=== PATIENT | male | born 1965 | race Caucasian/White ===

== ENCOUNTER 2018-03-31 12:59 | Emergency (ER) | payer MEDICAID ==
[~2018-03-31] VITALS: Ht 172.7 cm; Wt 148.0 kg
[2018-03-31 13:16] VITALS: BP 139/83
[2018-03-31] MEDS ORDERED: ketorolac tromethamine 15mg/ml inj. IM ONE (14:50)
[2018-03-31] MEDS ORDERED: triamcinolone acetonide 40mg/ml inj IM ONE (14:50)
[2018-03-31] MEDS ORDERED: HYDR-3965 PO (15:18)
== END 2018-03-31 15:25 | disposition home or self-care (01) ==
LOC: ER 13:00
DX: M10.9 Gout, unspecified (principal); M06.9 Rheumatoid arthritis, unspecified; I10 Essential (primary) hypertension; Z79.899 Other long term (current) drug therapy
CPT/HCPCS: 96372; 99284; J1885; J3301

== ENCOUNTER 2018-05-14 11:48 | Emergency (ER) | payer MEDICAID ==
[~2018-05-14] VITALS: Ht 172.7 cm; Wt 150.0 kg
[2018-05-14] MEDS ORDERED: HYDR-565 PO (12:44)
[2018-05-14] MEDS ORDERED: PRED20TA PO (12:44)
[2018-05-14 13:08] VITALS: BP 163/100
== END 2018-05-14 13:10 | disposition home or self-care (01) ==
LOC: ER 11:48
DX: S90.812A Abrasion, left foot, initial encounter (principal); M10.9 Gout, unspecified; I10 Essential (primary) hypertension; M19.90 Unspecified osteoarthritis, unspecified site; Z79.899 Other long term (current) drug therapy; X58.XXXA Exposure to other specified factors, initial encounter; Y92.89 Other specified places as the place of occurrence of the external cause; Y93.89 Activity, other specified; Y99.8 Other external cause status
CPT/HCPCS: 99283

== ENCOUNTER → 2018-10-28 | Emergency (ER) | payer MEDICAID ==
[~2018-10-28] VITALS: Ht 172.7 cm; Wt 147.7 kg
[~2018-10-28] MED LIST: HYDR-3965 PO; METH4TAB3 PO; METH4TAB81 PO; methylPREDNISolone acetate 80mg/ml inj**IM only IM ONE; methylPREDNISolone sod succ 125mg/2ml vial IM ONE
[2018-10-28 16:14] VITALS: BP 169/68
--- NOTE | 2018-10-28 17:04 | NUR ---
PT DESCRIBES PAIN LOWER EXT KNEES, ANKLES AND TOPS OF FEET. BURNING PAIN
== END | disposition home or self-care (01) ==
LOC: ER 16:06
DX: M10.9 Gout, unspecified (principal); I10 Essential (primary) hypertension; M06.9 Rheumatoid arthritis, unspecified; Z79.899 Other long term (current) drug therapy
CPT/HCPCS: 96372; 99283; J2930; J1040

== ENCOUNTER 2019-03-18 13:45 | Emergency (ER) | payer OTHER, MEDICAID ==
[~2019-03-18] VITALS: Ht 172.7 cm; Wt 139.0 kg
[~2019-03-18 13:45] MED LIST changes: -HYDR-3965 PO; -methylPREDNISolone acetate 80mg/ml inj**IM only IM ONE; -methylPREDNISolone sod succ 125mg/2ml vial IM ONE
[2019-03-18 13:58] VITALS: BP 152/99
[2019-03-18] MEDS ORDERED: ketorolac tromethamine 15mg/ml inj. IM ONE (16:20)
[2019-03-18] MEDS ORDERED: PRED20TA PO (16:26)
== END 2019-03-18 16:32 | disposition home or self-care (01) ==
LOC: ER 13:45
DX: M77.32 Calcaneal spur, left foot (principal); I10 Essential (primary) hypertension; E11.9 Type 2 diabetes mellitus without complications; M10.9 Gout, unspecified; M06.9 Rheumatoid arthritis, unspecified; Z79.899 Other long term (current) drug therapy
CPT/HCPCS: 36415; 73630; 84550; 96372; 99284; J1885

== ENCOUNTER 2019-07-17 10:34 | Emergency (ER) | payer MEDICAID, OTHER ==
[~2019-07-17] VITALS: Ht 172.7 cm; Wt 124.8 kg
[2019-07-17 10:41] VITALS: BP 132/84
[2019-07-17] MEDS ORDERED: ketorolac trometh inj. 60 MG/2 ML VIAL IM ONE (11:45)
[2019-07-17] MEDS ORDERED: triamcinolone acetonide 40mg/ml inj IM ONE (11:45)
[2019-07-17] MEDS ORDERED: METH4TAB81 PO (11:51)
[2019-07-17] MEDS ORDERED: TRAM50TA2 PO (11:51)
[2019-07-17] MEDS ORDERED: METF-437 PO (11:51)
== END 2019-07-17 12:30 | disposition home or self-care (01) ==
LOC: ER 10:35
DX: M70.62 Trochanteric bursitis, left hip (principal); I10 Essential (primary) hypertension; E11.9 Type 2 diabetes mellitus without complications; M06.9 Rheumatoid arthritis, unspecified; M10.9 Gout, unspecified; Z79.899 Other long term (current) drug therapy; Y93.89 Activity, other specified
CPT/HCPCS: 96372; 99283; J1885; J3301

== ENCOUNTER 2019-08-01 08:55 | Emergency (ER) | payer OTHER ==
[~2019-08-01] VITALS: Ht 172.7 cm; Wt 90.0 kg
[~2019-08-01 08:55] MED LIST changes: +METF-437 PO; +TRAM50TA2 PO
[2019-08-01 09:24] LABS: BASOPHILS # (AUTO) 0.1 X10'3 (0-0.2); BASOPHILS % (AUTO) 0.4 % (0-1); EOSINOPHILS # (AUTO) 0.1 X10'3 (0-0.9); EOSINOPHILS % (AUTO) 1.2 % (0-6); HEMATOCRIT 40.7 % (42.0-52.0); HEMOGLOBIN 13.7 g/dl (14.0-17.9); LYMPHOCYTES % (AUTO) 15.7 % (21-51); MEAN CORPUSCULAR HEMOGLOBIN 30.3 PG (27.0-31.0); MEAN CORPUSCULAR HGB CONC 33.8 g/dL (33.0-36.5); MEAN CORPUSCULAR VOLUME 89.7 FL (78-98); MEAN PLATELET VOLUME 10.7 FL (7.4-10.4); MONOCYTES # (AUTO) 0.9 X10'3 (0-0.9); MONOCYTES % (AUTO) 7.4 % (2-12); NEUTROPHILS # (AUTO) 9.4 X10'3 (1.8-7.7); NEUTROPHILS % (AUTO) 75.3 % (42-75); PLATELET COUNT 195 X10'3 (140-440); RED BLOOD COUNT 4.54 X10'6 (4.70-6.10); RED CELL DISTRIBUTION WIDTH 14.7 % (11.5-14.5); WHITE BLOOD COUNT 12.4 X10'3 (4.5-11.0)
[2019-08-01 09:35] LABS: ALANINE AMINOTRANSFERASE 30 U/L (12-78); ALBUMIN 4.2 G/DL (3.4-5.0); ALBUMIN/GLOBULIN RATIO 1.3 (1.1-1.5); ALKALINE PHOSPHATASE 50 IU/L (46-116); ANION GAP 9 (8-16); ASPARTATE AMINO TRANSFERASE 14 U/L (10-37); BILIRUBIN,TOTAL 0.4 MG/DL (0.1-1.0); BLOOD UREA NITROGEN 13 MG/DL (7-18); BUN/CREATININE RATIO 14.8 (5.4-32.0); CALCIUM 8.9 MG/DL (8.5-10.1); CHLORIDE 104 MMOL/L (99-107); CREATININE 0.88 MG/DL (0.60-1.10); GLUCOSE 94 MG/DL (70-104); POTASSIUM 4.1 MMOL/L (3.5-5.1); SODIUM 141 MMOL/L (135-145); TOTAL CARBON DIOXIDE 28.2 MMOL/L (24-32); TOTAL PROTEIN 7.4 G/DL (6.4-8.2); eGFR 90 ML/MIN
[2019-08-01] MEDS ORDERED: ALBU18HF2 INH (09:36)
[2019-08-01] MEDS ORDERED: BENZ-16 PO (09:36)
[2019-08-01 09:49] VITALS: BP 109/63
[2019-08-01 10:02] LABS: LARGE PLATELETS FEW; PLATELET ESTIMATE NORMAL
== END 2019-08-01 09:50 | disposition home or self-care (01) ==
LOC: ER 08:55
DX: J02.9 Acute pharyngitis, unspecified (principal); R05 Cough; R07.89 Other chest pain; R09.89 Other specified symptoms and signs involving the circulatory and respiratory systems; R50.9 Fever, unspecified; R09.3 Abnormal sputum; I10 Essential (primary) hypertension; E11.9 Type 2 diabetes mellitus without complications; M06.9 Rheumatoid arthritis, unspecified; M10.9 Gout, unspecified; Z79.84 Long term (current) use of oral hypoglycemic drugs; Z79.899 Other long term (current) drug therapy
CPT/HCPCS: 36415; 71045; 80053; 85025; 99284

== ENCOUNTER 2019-08-30 17:15 | Emergency (ER) | payer MEDICAID ==
[~2019-08-30] VITALS: Ht 172.7 cm; Wt 115.0 kg
[~2019-08-30 17:15] MED LIST changes: +ALBU18HF2 INH; -TRAM50TA2 PO
[2019-08-30 17:35] VITALS: BP 148/89
[2019-08-30] MEDS ORDERED: AMLO10TA4 PO (17:59)
[2019-08-30] MEDS ORDERED: METO100T7 PO (17:59)
[2019-08-30] MEDS ORDERED: BENA40TA73 PO (17:59)
[2019-08-30] MEDS ORDERED: VENL75CA55 PO (17:59)
[2019-08-30] MEDS ORDERED: CLON-529 PO (17:59)
== END 2019-08-30 18:12 | disposition home or self-care (01) ==
LOC: ER 17:15
DX: I10 Essential (primary) hypertension (principal); F32.9 Major depressive disorder, single episode, unspecified; E11.9 Type 2 diabetes mellitus without complications; Z76.0 Encounter for issue of repeat prescription; M06.9 Rheumatoid arthritis, unspecified; Z79.84 Long term (current) use of oral hypoglycemic drugs; Z79.899 Other long term (current) drug therapy
CPT/HCPCS: 99283

== ENCOUNTER 2019-11-12 11:47 | Emergency (ER) | payer MEDICAID ==
[~2019-11-12] VITALS: Ht 172.7 cm; Wt 108.0 kg
[~2019-11-12 11:47] MED LIST changes: +AMLO10TA4 PO; +CLON-529 PO; +VENL75CA55 PO
[2019-11-12 12:33] LABS: CLARITY,URINE CLOUDY (Clear); COLOR,URINE YELLOW (Yellow); GLUCOSE, URINE NEGATIVE (Neg); KETONES,URINE NEGATIVE (Neg); LEUKOCYTE ESTERASE ,URINE SMALL (Neg); NITRITES, URINE NEGATIVE (Neg); OCCULT BLOOD,URINE LARGE (Neg); PH,URINE 6.5 (4.8-8.0); PROTEIN,URINE 100 mg/dl (Neg)
[2019-11-12 12:39] LABS: UA COLLECTION TYPE CLN CATCH MIDSTREAM
[2019-11-12 12:43] LABS: SQUAMOUS EPITHELIAL CELL,UR FEW /LPF (FEW)
[2019-11-12] MEDS ORDERED: ketorolac tromethamine 15mg/ml inj. IV ONE (12:45)
[2019-11-12] MEDS ORDERED: normal saline 1000ML IV soln IVB ONE (12:45)
[2019-11-12] MEDS ORDERED: ondansetron/PF 4mg/2ml inj IV ONE (12:45)
[2019-11-12 12:46] LABS: RBC,URINE TNTC /HPF (0-2)
[2019-11-12 12:47] LABS: BACTERIA,URINE 1+ /HPF (Neg); TRANSITIONAL EPI CELLS,URINE FEW /HPF
--- NOTE | 2019-11-12 13:02 | NUR ---
Pt transported to CT via wheelchair w/tech.
[2019-11-12 13:17] LABS: BASOPHILS % (AUTO) 0.3 % (0-1); EOSINOPHILS # (AUTO) 0.2 X10'3 (0-0.9); EOSINOPHILS % (AUTO) 1.7 % (0-6); HEMATOCRIT 37.7 % (42.0-52.0); HEMOGLOBIN 12.7 g/dl (14.0-17.9); LYMPHOCYTES # (AUTO) 1.9 X10'3 (1.1-4.8); LYMPHOCYTES % (AUTO) 14.7 % (21-51); MEAN CORPUSCULAR HEMOGLOBIN 30.6 PG (27.0-31.0); MEAN CORPUSCULAR HGB CONC 33.7 g/dL (33.0-36.5); MEAN CORPUSCULAR VOLUME 90.7 FL (78-98); MEAN PLATELET VOLUME 9.8 FL (7.4-10.4); MONOCYTES # (AUTO) 1.1 X10'3 (0-0.9); MONOCYTES % (AUTO) 8.3 % (2-12); NEUTROPHILS # (AUTO) 9.7 X10'3 (1.8-7.7); PLATELET COUNT 195 X10'3 (140-440); RED BLOOD COUNT 4.16 X10'6 (4.70-6.10); RED CELL DISTRIBUTION WIDTH 13.7 % (11.5-14.5); WHITE BLOOD COUNT 12.9 X10'3 (4.5-11.0)
[2019-11-12 13:29] LABS: ALANINE AMINOTRANSFERASE 17 U/L (12-78); ALBUMIN 3.6 G/DL (3.4-5.0); ALBUMIN/GLOBULIN RATIO 1.2 (1.1-1.5); ALKALINE PHOSPHATASE 53 IU/L (46-116); ANION GAP 10 (8-16); ASPARTATE AMINO TRANSFERASE 10 U/L (10-37); BILIRUBIN,TOTAL 0.3 MG/DL (0.1-1.0); BLOOD UREA NITROGEN 10 MG/DL (7-18); BUN/CREATININE RATIO 13.3 (5.4-32.0); CALCIUM 9.2 MG/DL (8.5-10.1); CHLORIDE 103 MMOL/L (99-107); CREATININE 0.75 MG/DL (0.60-1.10); GLUCOSE 94 MG/DL (70-104); POTASSIUM 4.2 MMOL/L (3.5-5.1); SODIUM 139 MMOL/L (135-145); TOTAL CARBON DIOXIDE 25.9 MMOL/L (24-32); TOTAL PROTEIN 6.7 G/DL (6.4-8.2); eGFR > 90 ML/MIN
[2019-11-12 13:45] VITALS: BP 120/80
--- NOTE | 2019-11-12 13:46 | NUR ---
assumed care of pt from [facility], first contact with pt, pt c/o RUQ abd pain "comes in waves...it changes", radiates through to left flank, nausea is resolving with med given earlier, liter NS bolus infusing w/o
--- NOTE | 2019-11-12 13:51 | NUR ---
gave pt warm blanket
[2019-11-12] MEDS ORDERED: CEPH-572 PO (14:10)
--- NOTE | 2019-11-15 09:13 | NUR ---
called in new rx for cipro 500mg po bid x 7 days called in to [facility] [address]
== END 2019-11-12 14:31 | disposition home or self-care (01) ==
LOC: ER 11:47
DX: N39.0 Urinary tract infection, site not specified (principal); R31.9 Hematuria, unspecified; M54.5 Low back pain; I10 Essential (primary) hypertension; E11.9 Type 2 diabetes mellitus without complications; M19.90 Unspecified osteoarthritis, unspecified site; Z79.84 Long term (current) use of oral hypoglycemic drugs; Z79.899 Other long term (current) drug therapy
CPT/HCPCS: 36415; 74176; 80053; 81001; 85025; 87077; 87088; 87186; 96374; 96375; 99284; J1885; J2405; J7030